=== PATIENT | male | born 1990 | race Caucasian/White ===

== ENCOUNTER 2022-01-30 11:57 | Inpatient (IN) | payer MEDICAID, OTHER ==
[~2022-01-30] VITALS: Ht 172.7 cm; Wt 104.7 kg
[2022-01-30 13:08] LABS: BASOPHILS % (AUTO) 0.4 % (0.0-2.0); EOSINOPHILS % (AUTO) 3.2 % (1.0-6.0); HEMATOCRIT 42.5 % (41-53); HEMOGLOBIN 13.9 g/dL (13.5-17.5); LYMPHOCYTES # (AUTO) 1.6 K/uL (1.0-4.8); LYMPHOCYTES % (AUTO) 25.7 % (22.0-44.0); MEAN CORPUSCULAR HEMOGLOBIN 28.5 pg (26.0-34.0); MEAN CORPUSCULAR HGB CONC 32.6 G/dL (31.0-37.0); MEAN CORPUSCULAR VOLUME 88 fL (80-100); MONOCYTES # (AUTO) 0.4 K/uL (0.1-1.0); MONOCYTES % (AUTO) 6.2 % (2.0-9.0); NEUTROPHILS % (AUTO) 64.5 % (40.0-70.0); PLATELET COUNT (AUTO) 246 K/uL (150-450); RED BLOOD CELL COUNT(AUTO) 4.85 MIL/uL (4.50-5.90); RED CELL DISTRIBUTION WIDTH 13.6 % (11.5-14.5)
[2022-01-30 13:29] LABS: ANION GAP 6 mmol/L (8-16); CARBON DIOXIDE 29 mmol/L (22-29); CHLORIDE 103 mmol/L (98-107); CREATININE 0.73 mg/dL (0.60-1.30); GLOMERULAR FILTR. RATE CALC > 60 mL/min (>60); GLUCOSE,RANDOM 93 mg/dL (70-110); POTASSIUM 4.1 mmol/L (3.5-5.1); SODIUM SERUM 138 mmol/L (136-145); UREA NITROGEN, BLOOD 11 mg/dL (7-18)
[2022-01-30 13:34] LABS: COVID AG,FIA SOURCE NASOPHARYNGEAL
[2022-01-30 13:35] LABS: ALANINE AMINOTRANSFERASE 25 U/L (12-78); ALBUMIN 4.1 g/dL (3.4-5.0); ALKALINE PHOSPHATASE 65 U/L (46-116); ASPARTATE AMINOTRANSFERASE 15 U/L (15-37); BILIRUBIN,TOTAL 0.4 mg/dL (0.1-1.0); TOTAL PROTEIN, SERUM 8.4 g/dL (6.4-8.2)
[2022-01-30 13:52] LABS: AMPHET/METH SCREEN,URINE NEGATIVE (NEGATIVE); BARBITURATE SCREEN, URINE NEGATIVE (NEGATIVE); BENZODIAZEPINES SCREEN,URINE NEGATIVE (NEGATIVE); CANNABINOID SCREEN,URINE NEGATIVE (NEGATIVE); COCAINE SCREEN,URINE NEGATIVE (NEGATIVE); METHADONE SCREEN, URINE NEGATIVE (NEGATIVE); OPIATE SCREEN,URINE NEGATIVE (NEGATIVE); PHENCYCLIDINE SCREEN,URINE NEGATIVE (NEGATIVE)
[2022-01-30] MEDS ORDERED: LORazepam 2 MG TABLET PO PRN (14:15)
[2022-01-30] MEDS ORDERED: HALOPERIDOL 5 MG TABLET PO PRN (14:15)
[2022-01-30] MEDS ORDERED: ACETAMINOPHEN 500 MG TABLET PO ONE (16:36)
[2022-01-30] MEDS ORDERED: ACETAMINOPHEN 650 MG/20.3 ML SOLUTION UDCUP PO ONE (17:00)
[2022-01-30] MEDS ORDERED: GuaiFENesin [SUGAR-FREE] 200 MG/10 ML SOLUTION UDCUP PO PRN (19:45)
[2022-01-30] MEDS: LORATADINE 10 MG TABLET PO SCH (19:45)
[2022-01-30] MEDS ORDERED: PNEUMOCOCCAL VACCINE POLYVALENT 0.5 ML VIAL [PPSV23] IM. ONE (20:00)
[2022-01-30] MEDS ORDERED: INFLUENZA VIRUS VACCINE QVS 2022-23 (6MO+)/PF 60 MCG/0.5 ML SYRINGE IM. ONE (20:00)
[2022-01-30 20:29] VITALS: BP 130/78
[2022-01-31] MEDS: LORATADINE 10 MG TABLET PO SCH (08:37)
[2022-01-31 08:59] VITALS: BP 113/64
[2022-01-31] MEDS ORDERED: ONDANSETRON HCL 4 MG TABLET PO PRN (10:15)
[2022-01-31] MEDS ORDERED: NICOTINE 14 MG/24 HOUR PATCH TD PRN (10:15)
[2022-01-31] MEDS ORDERED: ACETAMINOPHEN 325 MG TABLET PO PRN (10:15)
[2022-01-31] MEDS ORDERED: ALBUTEROL SULFATE HFA 90 MCG/PUFF 8 GM INHALER IH PRN (10:15)
[2022-01-31] MEDS ORDERED: MAGNESIUM HYDROXIDE SUSPENSION 30 ML UDCUP PO PRN (10:15)
[2022-01-31] MEDS ORDERED: PETROLATUM,WHITE 28 GM JELLY TP PRN (10:15)
[2022-01-31] MEDS ORDERED: IBUPROFEN 400 MG TABLET PO PRN (10:15)
[2022-01-31] MEDS ORDERED: LOPERAMIDE HCL 2 MG CAPSULE PO PRN (10:15)
[2022-01-31] MEDS ORDERED: MAG HYDROX/AL HYDROX/SIMETH ES 30 ML SUSPENSION UDCUP PO PRN (10:15)
[2022-01-31] MEDS ORDERED: CloNIDine HCL 0.1 MG TABLET PO PRN (10:15)
[2022-01-31] MEDS ORDERED: DOCUSATE SODIUM 100 MG CAPSULE PO PRN (10:15)
[2022-01-31] MEDS: ZOLPIDEM TARTRATE 10 MG TABLET PO PRN (20:25)
[2022-01-31 20:49] VITALS: BP 125/70
[2022-02-01 09:00] VITALS: BP 100/58
[2022-02-01] MEDS: LORATADINE 10 MG TABLET PO SCH (09:00)
[2022-02-01] MEDS: SERTRALINE HCL 50 MG TABLET PO SCH (09:00)
[2022-02-01] MEDS: ZOLPIDEM TARTRATE 10 MG TABLET PO PRN (20:23)
[2022-02-01 20:27] VITALS: BP 146/82
[2022-02-02 02:15] VITALS: BP 117/83
[2022-02-02] MEDS: LORATADINE 10 MG TABLET PO SCH (08:43)
[2022-02-02] MEDS: SERTRALINE HCL 50 MG TABLET PO SCH (08:43)
[2022-02-02 08:57] VITALS: BP 120/81
[2022-02-02] MEDS ORDERED: SERT-439 PO (09:30)
[2022-02-02] MEDS ORDERED: LORA10TA60 PO (09:30)
== END 2022-02-02 12:10 | disposition home or self-care (01) | DRG 751 ==
LOC: EMS 11:59 → B3A 14:29 → UNDODISIN 16:36 → B2S 18:19
PROVIDERS: ADMIT Psychiatry & Neurology Psychiatry; ATTEND Psychiatry & Neurology Psychiatry
DX: F33.2 Major depressive disorder, recurrent severe without psychotic features (principal); F10.10 Alcohol abuse, uncomplicated; J45.909 Unspecified asthma, uncomplicated; Z20.822 Contact with and (suspected) exposure to COVID-19; Z79.899 Other long term (current) drug therapy; Z88.8 Allergy status to other drugs, medicaments and biological substances
CPT/HCPCS: 80053; 85025; 99285; G0480

== ENCOUNTER 2023-09-24 01:00 | Inpatient (IN) | payer MEDICAID, OTHER ==
[~2023-09-24] VITALS: Ht 170.2 cm; Wt 106.1 kg
[~2023-09-24 01:00] MED LIST: LORA10TA60 PO; SERT-439 PO
[2023-09-24 01:38] LABS: COVID AG,FIA SOURCE NASAL SWAB
[2023-09-24 01:41] LABS: BASOPHILS % (AUTO) 0.6 % (0.0-2.0); EOSINOPHILS % (AUTO) 6.9 % (1.0-6.0); HEMATOCRIT 38.7 % (41-53); HEMOGLOBIN 13.1 g/dL (13.5-17.5); LYMPHOCYTES % (AUTO) 37.8 % (22.0-44.0); MEAN CORPUSCULAR HEMOGLOBIN 29.5 pg (26.0-34.0); MEAN CORPUSCULAR VOLUME 87 fL (80-100); MONOCYTES # (AUTO) 0.5 K/uL (0.1-1.0); MONOCYTES % (AUTO) 6.4 % (2.0-9.0); NEUTROPHILS # (AUTO) 3.8 K/uL (1.8-7.7); NEUTROPHILS % (AUTO) 48.3 % (40.0-70.0); PLATELET COUNT (AUTO) 231 K/uL (150-450); RED BLOOD CELL COUNT(AUTO) 4.46 MIL/uL (4.50-5.90); RED CELL DISTRIBUTION WIDTH 13.2 % (11.5-14.5); WHITE BLOOD COUNT (AUTO) 7.8 K/uL (4.5-11.0)
[2023-09-24 01:49] LABS: ANION GAP -2 mmol/L (8-16); CALCIUM, TOTAL 9.3 mg/dL (8.8-10.5); CARBON DIOXIDE 29 mmol/L (22-29); CHLORIDE 101 mmol/L (98-107); CREATININE 0.95 mg/dL (0.60-1.30); GLOMERULAR FILTR. RATE CALC > 60 mL/min (>60); GLUCOSE,RANDOM 99 mg/dL (70-110); POTASSIUM 3.8 mmol/L (3.5-5.1); SODIUM SERUM 128 mmol/L (136-145); UREA NITROGEN, BLOOD 20 mg/dL (7-18)
[2023-09-24 01:57] LABS: ALCOHOL, BLOOD (SERUM) < 3 mg/dL (0-10)
[2023-09-24 01:59] LABS: SARS-COV2 (COVID) ANTIGEN,FIA Negative (Negative)
[2023-09-24] MEDS ORDERED: HALOPERIDOL 5 MG TABLET PO PRN (02:00)
[2023-09-24 05:24] VITALS: BP 120/80; PULSE 62; RESP 16; TEMP 97.9; O2SAT 97
[2023-09-24] MEDS ORDERED: PETROLATUM,WHITE 28 GM JELLY TP PRN (05:45)
[2023-09-24] MEDS ORDERED: ALBUTEROL SULFATE HFA 90 MCG/PUFF 8 GM INHALER IH PRN (05:45)
[2023-09-24] MEDS ORDERED: LOPERAMIDE HCL 2 MG CAPSULE PO PRN (05:45)
[2023-09-24] MEDS ORDERED: OMEPRAZOLE 20 MG CAPSULE PO PRN (05:45)
[2023-09-24] MEDS ORDERED: DOCUSATE SODIUM 100 MG CAPSULE PO PRN (05:45)
[2023-09-24] MEDS ORDERED: BENZOCAINE/MENTHOL LOZENGE PO PRN (05:45)
[2023-09-24] MEDS ORDERED: IBUPROFEN 600 MG TABLET PO PRN (05:45)
[2023-09-24] MEDS ORDERED: BACITRACIN 28 GM OINTMENT TP PRN (05:45)
[2023-09-24] MEDS ORDERED: MAGNESIUM HYDROXIDE SUSPENSION 30 ML UDCUP PO PRN (05:45)
[2023-09-24] MEDS ORDERED: ACETAMINOPHEN 325 MG TABLET PO PRN (05:45)
[2023-09-24] MEDS ORDERED: CloNIDine HCL 0.1 MG TABLET PO PRN (05:45)
[2023-09-24] MEDS ORDERED: MAG HYDROX/ALUMINUM HYD/SIMETH ES 30 ML SUSPENSION UDCUP PO PRN (05:45)
[2023-09-24] MEDS ORDERED: ONDANSETRON HCL 4 MG TABLET PO PRN (05:45)
[2023-09-24 08:14] VITALS: BP 111/67; PULSE 64; RESP 16; TEMP 97.7; O2SAT 97
[2023-09-24] MEDS: SERTRALINE HCL 50 MG TABLET PO SCH (12:50)
[2023-09-24 20:04] VITALS: BP 136/79; PULSE 70; RESP 17; TEMP 98.2; O2SAT 97
[2023-09-24] MEDS: ZOLPIDEM TARTRATE 10 MG TABLET PO PRN (22:18)
[2023-09-25 08:00] LABS: ANION GAP 5 mmol/L (8-16); CALCIUM, TOTAL 9.7 mg/dL (8.8-10.5); CARBON DIOXIDE 30 mmol/L (22-29); CHLORIDE 102 mmol/L (98-107); CREATININE 0.81 mg/dL (0.60-1.30); GLOMERULAR FILTR. RATE CALC > 60 mL/min (>60); GLUCOSE,RANDOM 93 mg/dL (70-110); SODIUM SERUM 137 mmol/L (136-145); UREA NITROGEN, BLOOD 14 mg/dL (7-18)
[2023-09-25 08:09] VITALS: BP 143/75; PULSE 68; RESP 18; TEMP 97.8; O2SAT 97
[2023-09-25] MEDS: LORazepam 2 MG TABLET PO PRN (11:23)
[2023-09-25 16:19] VITALS: BP 127/72; PULSE 76; RESP 17; TEMP 98.5; O2SAT 94
[2023-09-25 20:41] VITALS: BP 127/72; PULSE 76; RESP 18; TEMP 98.5; O2SAT 94
[2023-09-26 08:11] VITALS: BP 110/64; PULSE 63; RESP 18; TEMP 97.5; O2SAT 97
[2023-09-26] MEDS: PNEUMOCOCCAL VACCINE POLYVALENT 0.5 ML SYRINGE [PPSV23] IM. ONE (09:37)
[2023-09-26 20:22] VITALS: BP 108/74; PULSE 65; RESP 18; TEMP 97.3; O2SAT 98
[2023-09-27 08:01] VITALS: BP 141/64; PULSE 71; RESP 17; TEMP 96.5; O2SAT 100
[2023-09-27 21:20] VITALS: BP 114/72; PULSE 97; RESP 16; TEMP 98; O2SAT 97
[2023-09-28 08:43] LABS: APPEARANCE,URINE TURBID (CLEAR); BILIRUBIN,URINE NEGATIVE (NEGATIVE); COLOR,URINE YELLOW (YELLOW); GLUCOSE, URINE (UA) NEGATIVE (NEGATIVE); KETONES,URINE NEGATIVE (NEGATIVE); LEUKOCYTE ESTERASE ,URINE NEGATIVE (NEGATIVE); NITRATE,URINE NEGATIVE (NEGATIVE); OCCULT BLOOD,URINE NEGATIVE (NEGATIVE); PROTEIN,URINE 30-70 mg/dL (NEGATIVE); UROBILINOGEN,URINE <=1.0 mg/dL (<=1.0)
[2023-09-28] MEDS ORDERED: SERT-439 PO (08:48)
[2023-09-28 09:14] VITALS: BP 115/63; PULSE 68; RESP 17; TEMP 96.8; O2SAT 97
[2023-09-28 09:37] LABS: ALCOHOL, URINE DRUG SCREEN NEGATIVE (NEGATIVE); AMPHET/METH SCREEN,URINE NEGATIVE (NEGATIVE); BARBITURATE SCREEN, URINE NEGATIVE (NEGATIVE); BENZODIAZEPINES SCREEN,URINE NEGATIVE (NEGATIVE); CANNABINOID SCREEN,URINE NEGATIVE (NEGATIVE); COCAINE SCREEN,URINE NEGATIVE (NEGATIVE); METHADONE SCREEN, URINE NEGATIVE (NEGATIVE); OPIATE SCREEN,URINE NEGATIVE (NEGATIVE); PHENCYCLIDINE SCREEN,URINE NEGATIVE (NEGATIVE)
== END 2023-09-28 15:41 | disposition home or self-care (01) | DRG 751 ==
LOC: EMS 01:00 → B2S 02:35
PROVIDERS: ADMIT Psychiatry & Neurology Psychiatry; ATTEND Psychiatry & Neurology Psychiatry
PROC: GZHZZZZ Group Psychotherapy (ICD-10-PCS; principal; 2023-09-24)
PROC: GZ56ZZZ Individual Psychotherapy, Supportive (ICD-10-PCS; 2023-09-24)
DX: F33.2 Major depressive disorder, recurrent severe without psychotic features (principal); R45.851 Suicidal ideations; E66.9 Obesity, unspecified; F41.9 Anxiety disorder, unspecified; G47.00 Insomnia, unspecified; K59.00 Constipation, unspecified; Z20.822 Contact with and (suspected) exposure to COVID-19; I10 Essential (primary) hypertension; J45.909 Unspecified asthma, uncomplicated; Z79.899 Other long term (current) drug therapy; Z68.36 Body mass index [BMI] 36.0-36.9, adult
CPT/HCPCS: 80048; 80307; 81003; 85025; 99285; G0480